=== PATIENT | male | born 1940 | race Hispanic/Latino ===

== ENCOUNTER 2017-09-24 03:51 | Emergency (ER) | payer MEDICARE, SELFPAY ==
[2017-09-24] MEDS ORDERED: Sodium Bicarb 50 MEQ/50 ML Abboject 8.4% SYRINGE ONE (04:00)
[2017-09-24] MEDS ORDERED: Calcium Chloride 1 GM/10 ML Abboject SYRINGE ONE (04:00)
[2017-09-24] MEDS ORDERED: EPINEPHrine 1 MG/10 ML Abboject SYRINGE ONE (04:00)
== END 2017-09-24 04:18 | disposition expired ==
LOC: ERS 03:51 → EDBD 03:51 → ERS 04:18
DX: I46.9 Cardiac arrest, cause unspecified (principal); M79.89 Other specified soft tissue disorders; Z79.899 Other long term (current) drug therapy
CPT/HCPCS: 31500; 36430; 86850; 86900; 86901; 86920; 92950; 96374; 96375; 99285; J2997; P9016; J0171